=== PATIENT | male | born 1990 | race Two or more races ===

== ENCOUNTER 2021-12-29 14:05 | Emergency (ER) | payer MEDICAID, OTHER ==
[~2021-12-29] VITALS: Ht 190.5 cm; Wt 68.4 kg
[2021-12-29] MEDS ORDERED: CEPH-509 PO (15:00)
[2021-12-29] MEDS ORDERED: methylPREDNISolone SOD SUCC 125 MG/2 ML VL IM ONE (15:00)
[2021-12-29] MEDS ORDERED: PRED20TA2 PO (15:00)
[2021-12-29] MEDS ORDERED: DIPH25CA66 PO (15:00)
[2021-12-29] MEDS ORDERED: diphenhdrAMINE HCL 50 MG/1 ML VL IM ONE (15:00)
[2021-12-29 15:45] VITALS: BP 173/108
== END 2021-12-29 21:57 | disposition home or self-care (01) ==
LOC: ER 14:05
DX: S40.861A Insect bite (nonvenomous) of right upper arm, initial encounter (principal); I10 Essential (primary) hypertension; Z79.899 Other long term (current) drug therapy; W57.XXXA Bitten or stung by nonvenomous insect and other nonvenomous arthropods, initial encounter; Y93.89 Activity, other specified; Y92.89 Other specified places as the place of occurrence of the external cause; Y99.8 Other external cause status
CPT/HCPCS: 96372; 99284; J1200; J2930

== ENCOUNTER 2022-04-13 16:32 | Emergency (ER) | payer MEDICAID ==
[~2022-04-13] VITALS: Ht 190.5 cm; Wt 154.0 kg
[~2022-04-13 16:32] MED LIST: CEPH-509 PO; DIPH25CA66 PO; PRED20TA2 PO
[2022-04-13 16:33] VITALS: BP 182/99
[2022-04-13 17:14] LABS: Basophils # (auto) 0.1 10 ^3/uL (0-0.2); Basophils % (auto) 0.6 % (0.0-2.0); Eosinophils # (auto) 0.1 10 ^3/uL (0-0.8); Eosinophils % (auto) 1.3 % (0.0-7.0); Hematocrit 41.9 % (41.0-53.0); Hemoglobin 13.9 g/dL (13.5-17.5); Lymphocytes # (auto) 2.6 10 ^3/uL (0.4-5.4); Lymphocytes % (auto) 23.2 % (10.0-50.0); Mean Corpuscular Hemoglobin 27.3 pg (28.0-32.0); Mean Corpuscular Hgb Conc. 33.2 g/dL (32.0-36.0); Mean Corpuscular Volume 82.3 fL (80.0-100.0); Monocytes # (auto) 0.9 10 ^3/uL (0-1.3); Neutrophils # (auto) 7.4 10 ^3/uL (1.6-8.6); Neutrophils % (auto) 66.9 % (37.0-80.0); Nucleated Red Blood Cells % 0.2 %
[2022-04-13 17:23] LABS: Albumin 3.6 g/dL (3.4-5.0); BUN/Creatinine Ratio 17.6; Calcium 9.4 mg/dL (8.5-10.1); Potassium 4.3 mmol/L (3.5-5.1)
[2022-04-13 17:27] LABS: Bilirubin, Total 0.6 mg/dL (0.2-1.0)
[2022-04-13] MEDS ORDERED: ASPirin 325 MG TAB PO ONE (17:30)
[2022-04-13] MEDS ORDERED: NITROGLYCERIN 0.4 MG SL TAB SL ONE (17:30)
== END 2022-04-13 19:22 | disposition left against medical advice (07) ==
LOC: ER 16:32
DX: I24.9 Acute ischemic heart disease, unspecified (principal); I10 Essential (primary) hypertension; Z79.899 Other long term (current) drug therapy
CPT/HCPCS: 36415; 71045; 80053; 84484; 85025; 85379; 93005

== ENCOUNTER 2022-05-18 15:38 | Emergency (ER) | payer MEDICAID ==
[~2022-05-18] VITALS: Ht 190.5 cm; Wt 161.0 kg
[2022-05-18 16:15] LABS: Basophils # (auto) 0.1 10 ^3/uL (0-0.2); Eosinophils # (auto) 0.2 10 ^3/uL (0-0.8); Red Cell Distribution Width 14.3 % (11.8-14.3)
[2022-05-18 16:17] LABS: Basophils % (auto) 0.7 % (0.0-2.0); Eosinophils % (auto) 1.6 % (0.0-7.0); Hematocrit 41.3 % (41.0-53.0); Hemoglobin 13.3 g/dL (13.5-17.5); Lymphocytes # (auto) 3.1 10 ^3/uL (0.4-5.4); Lymphocytes % (auto) 27.7 % (10.0-50.0); Mean Corpuscular Hemoglobin 26.7 pg (28.0-32.0); Mean Corpuscular Hgb Conc. 32.3 g/dL (32.0-36.0); Mean Corpuscular Volume 82.7 fL (80.0-100.0); Monocytes # (auto) 1.1 10 ^3/uL (0-1.3); Monocytes % (auto) 9.6 % (0.0-12.0); Neutrophils # (auto) 6.7 10 ^3/uL (1.6-8.6); Neutrophils % (auto) 60.4 % (37.0-80.0); Nucleated Red Blood Cells % 0.1 %; White Blood Cell 11.2 10^3/uL (4.4-10.8)
[2022-05-18 16:38] LABS: Albumin 3.4 g/dL (3.4-5.0); BUN/Creatinine Ratio 14.8; Calcium 9.2 mg/dL (8.5-10.1); Potassium 3.7 mmol/L (3.5-5.1)
[2022-05-18 16:53] LABS: Bilirubin, Total 0.4 mg/dL (0.2-1.0); Total Protein 7.4 g/dL (6.4-8.2)
[2022-05-18] MEDS ORDERED: OMEP20TA PO (20:38)
[2022-05-18] MEDS ORDERED: AMLO-496 PO (20:38)
[2022-05-18 20:56] VITALS: BP 177/98
== END 2022-05-18 20:56 | disposition home or self-care (01) ==
LOC: ER 15:38
DX: I10 Essential (primary) hypertension (principal); K21.9 Gastro-esophageal reflux disease without esophagitis; R51.9 Headache, unspecified; R07.9 Chest pain, unspecified
CPT/HCPCS: 36415; 71045; 80053; 84484; 85025; 93005

== ENCOUNTER 2023-11-12 23:02 | Emergency (ER) | payer MEDICAID ==
[~2023-11-12] VITALS: Ht 190.5 cm; Wt 172.2 kg
[~2023-11-12 23:02] MED LIST changes: +AMLO1TAB23 PO; +OMEP20TA PO
[2023-11-12 23:06] VITALS: BP 189/115
[2023-11-12 23:22] LABS: Basophils # (auto) 0.1 10 ^3/uL (0-0.2); Eosinophils # (auto) 0.5 10 ^3/uL (0-0.8); Monocytes # (auto) 1.5 10 ^3/uL (0-1.3); Neutrophils % (auto) 75.8 % (37.0-80.0)
[2023-11-12 23:23] LABS: Basophils % (auto) 0.5 % (0.0-2.0); Eosinophils % (auto) 2.6 % (0.0-7.0); Hematocrit 39.7 % (41.0-53.0); Hemoglobin 13.2 g/dL (13.5-17.5); Lymphocytes # (auto) 2.4 10 ^3/uL (0.4-5.4); Lymphocytes % (auto) 12.9 % (10.0-50.0); Mean Corpuscular Hemoglobin 26.9 pg (28.0-32.0); Mean Corpuscular Hgb Conc. 33.4 g/dL (32.0-36.0); Mean Corpuscular Volume 80.7 fL (80.0-100.0); Monocytes % (auto) 8.2 % (0.0-12.0); Neutrophils # (auto) 14.1 10 ^3/uL (1.6-8.6); Red Blood Cells 4.92 10^6/uL (4.5-5.90); Red Cell Distribution Width 14.8 % (11.8-14.3); White Blood Cell 18.6 10^3/uL (4.4-10.8)
[2023-11-12 23:39] VITALS: RESP 24; O2SAT 93
[2023-11-12] MEDS: ALBUTEROL SULF 2.5 MG/0.5ML(0.5%) NEB SOLN ONE (23:39)
[2023-11-12] MEDS: ALBUTEROL SULF 2.5 MG/0.5ML(0.5%) NEB SOLN NEB ONE (23:39)
[2023-11-12 23:44] LABS: Alanine Aminotransferase 21 U/L (7-40); Albumin 4.5 g/dL (3.2-4.8); Alkaline Phosphatase 106 U/L (46-116); Anion Gap 7 (5-15); Aspartate Aminotransferase 18 U/L (13-40); BUN/Creatinine Ratio 10.7 (10.0-20.0); Blood Urea Nitrogen 12 mg/dL (9-23); Calcium 9.7 mg/dL (8.5-10.1); Carbon Dioxide 25 mmol/L (20-30); Chloride 104 mmol/L (98-107); Glucose 197 mg/dL (74-106); Magnesium 1.9 mg/dL (1.6-2.6); Potassium 3.6 mmol/L (3.5-5.1); Sodium 136 mmol/L (136-145)
[2023-11-12 23:45] LABS: Bilirubin, Total 0.5 mg/dL (0.2-1.0); Total Protein 7.9 g/dL (5.7-8.2)
[2023-11-12 23:46] LABS: INR 1.02 (0.9-1.15); Partial Thromboplastin Time 27.1 SEC (24.5-34.5); Prothrombin Time 10.8 sec (9.3-11.8)
[2023-11-13 00:01] VITALS: PULSE 125
== END 2023-11-13 02:59 | disposition home or self-care (01) ==
LOC: ER 23:02
DX: R07.9 Chest pain, unspecified (principal); K21.9 Gastro-esophageal reflux disease without esophagitis; I10 Essential (primary) hypertension
CPT/HCPCS: 36415; 71046; 80053; 83735; 83880; 84484; 85025; 85610; 85730; 93005; 94640

== ENCOUNTER 2023-11-25 18:39 | Emergency (ER) | payer MEDICAID ==
[~2023-11-25] VITALS: Ht 190.5 cm; Wt 172.7 kg
[2023-11-25] MEDS ORDERED: CLON0.1T PO (19:22)
[2023-11-25] MEDS ORDERED: AMLO1TAB23 PO (19:22)
[2023-11-25] MEDS ORDERED: LISI40TA16 PO (19:22)
[2023-11-25 19:41] VITALS: BP 181/108; PULSE 86; RESP 18; TEMP 98.5; O2SAT 95
== END 2023-11-25 19:44 | disposition home or self-care (01) ==
LOC: ER 18:39
DX: H92.01 Otalgia, right ear (principal); I10 Essential (primary) hypertension; K21.9 Gastro-esophageal reflux disease without esophagitis

== ENCOUNTER 2024-12-08 12:26 | Emergency (ER) | payer MEDICAID ==
[~2024-12-08] VITALS: Ht 190.5 cm; Wt 166.1 kg
[~2024-12-08 12:26] MED LIST changes: +CLON0.1T PO; +LISI40TA16 PO
[2024-12-08] MEDS: diazePAM 2 MG TAB PO ONE (13:00)
--- NOTE | 2024-12-08 13:14 | ED.PDOC ---
Back pain HPI HPI Comments This is a 34 year old male presenting to the ED with chief complaint of back pain. Patient reports that he started to suddenly experience lower left back pain since yesterday. Patient relays that his pain radiates to his abdomen, his pain is worsened when rotating, but better when sitting. Patient denies any N/V/D, dysuria, hematuria, chest pain, SOB, fall, or injury. Chief Complaint: Back Pain Time Seen by MD: 13:10 Primary Care Provider: none Reviewed Notes: Nurses Notes, Medications, Allergies Allergies: Coded Allergies: No Known Drug Allergy (Verified Allergy, Unknown, 12/29/21) Home Meds Active Scripts Clonidine Hydrochloride (Clonidine Hcl) 0.1 Mg Tab, 1 TAB PO QPM, #30 TAB 0 Refi lls Prov:GRACIELA MCCURDYO [facility] 11/25/23 Lisinopril (Lisinopril) 40 Mg Tab, 1 TAB PO DAILY, #30 TAB 0 Refills Prov:KAZGRACIELA [facility] 11/25/23 Amlodipine Besylate (Amlodipine Besylate) 10 Mg Tab, 1 TAB PO DAILY, #30 TAB 5 Refills Prov:MCCURDYGRACIELA [facility] 11/25/23 Omeprazole (Gnp Omeprazole) 20 Mg Tab, 1 TAB PO DAILY, #30 TAB 3 Refills Prov:SUKHDEV PETE DO 05/18/22 Diphenhydramine Hcl (Benadryl Allergy) 25 Mg Cap, 2 CAP PO Q4HPRN, #30 CAP 0 Refills Prov:KATELYN WIGGINS 12/29/21 Cephalexin (KEFLEX 500) 500 Mg Cap, 1 CAP PO BID for 7 Days, #14 CAP 0 Refills Prov:KATELYN WIGGINS 12/29/21 Prednisone (Prednisone) 20 Mg Tab, 20 MG PO BID for 5 Days, #10 MG 0 Refills Prov:KATELYN WIGGINS 12/29/21 Information Source: Patient Mode of Arrival: Ambulatory Timing: Days Duration: Since onset Location of Back pain: (L) Lower back Severity: Moderate Prehospital treatment: None Quality: Aching Onset: Spontaneous, Twisting Past Medical History PAST MEDICAL HISTORY: GERD, HTN Surgical History: Denies all surgeries Family History Family History: Unknown Social History Smoker: Non-Smoker Alcohol: Denies ETOH Use Drugs: Denies Drug Use Lives In: Home Constitutional: denies: chills, diaphoresis, fatigue, fever, malaise, sweats, weakness, others EENTM: denies: blurred vision, double vision, ear bleeding, ear discharge, ear drainage, ear pain, ear ringing, eye pain, eye redness, hearing loss, mouth pain, mouth swelling, nasal discharge, nose bleeding, nose congestion, nose pain , photophobia, tearing, throat pain, throat swelling, voice changes, others Respiratory: denies: cough, hemoptysis, orthopnea, SOB at rest, shortness of breath, SOB with excertion, stridor, wheezing, others Cardiovascular: denies: chest pain, dizzy spells, diaphoresis, Dyspnea on exertion, edema, irregular heart beat, left arm pain, lightheadedness, palpitations, PND, syncope, others Gastrointestinal: denies: abdomen distended, abdominal pain, blood streaked bowels, constipated, diarrhea, dysphagia, difficulty swallowing, hematemesis, melena, nausea, poor appetite, poor fluid intake, rectal bleeding, rectal pain, vomiting, others Genitourinary: denies: burning, dysuria, flank pain, frequency, hematuria, incontinence, penile discharge, penile sore, pain, testicle pain, testicle swelling, urgency, others Neurological: denies: dizziness, fainting, headache, left sided numbness, left sided weakness, numbness, paresthesia, pre-existing deficit, right sided numbness, right sided weakness, seizure, speech problems, tingling, tremors, weakness, others Musculoskeletal: reports: back pain; denies: gout, joint pain, joint swelling, muscle pain, muscle stiffness, neck pain, others Integumetry: denies: bruises, change in color, change in hair/nails, dryness, laceration, lesions, lumps, rash, wounds, others Allergic/Immunocompromised: denies: Difficulty Healing, Frequent Infections, Hives, Itching, others Hematologic/Lymphatic: denies: anemia, blood clots, easy bleeding, easy bruising, swollen glands, others Endocrine: denies: excessive hunger, excessive sweating, excessive thirst, excessive urination, flushing, intolerance to cold, intolerance to heat, unexplained weight gain, unexplained weight loss, others Psychiatric: denies: anxiety, bipolar disorder, depression, hopeless, panic disorder, schizophrenia, sleepless, suicidal, others All Other Systems: Reviewed and Negative Physical Exam General Appearance: No Apparent Distress, Normal HEENT: Normal ENT Inspection, Pharynx Normal, TMs Normal Neck: Full Range of Motion, Non-Tender, Normal, Normal Inspection Respiratory: Chest Non-Tender, Lungs Clear, No Accessory Muscle Use, No Respiratory Distress, Normal Breath Sounds Cardiovascular: No Edema, No JVD, No Murmur, No Gallop, Normal Peripheral Pulses, Regular Rate/Rhythm Breast Exam: Deferred Gastrointestinal: No Organomegaly, Non Tender, No Pulsatile Mass, Normal Bowel Sounds, Soft Genitalia: Deferred Pelvic: Deferred Rectal: Deferred Extremities: No calf tenderness, Normal capillary refill, Normal inspection, Normal range of motion, Non-tender, No pedal edema Musculoskeletal : Apperance: Normal Neurologic: Alert, 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 Was a procedure done?: No Back Pain Differential Dx Differential Diagnosis: Fracture, Musculoskeletal Pain, Pyelonephritis, Urinary Tract Infection, Urolithiasis X-Ray, Labs, Meds, VS Vital Signs Date Time Temp Pulse Resp B/P (MAP) Pulse Ox O2 Delivery O2 Flow Rate FiO2 12/08/24 13:36 98.3 86 19 190/110 (136) 96 98.3 12/08/24 12:58 98.3 87 20 198/126 (150) 97 98.3 Lab Test 12/08/24 13:24 12/08/24 12:57 Range/Units White Blood Count 12.9 H 4.4-10.8 10^3/uL Red Blood Count 5.02 4.5-5.90 10^6/uL Hemoglobin 13.0 L 13.5-17.5 g/dL Hematocrit 39.2 L 41.0-53.0 % Mean Corpuscular Volume 78.0 L 80.0-100.0 fL Mean Corpuscular Hemoglobin 25.9 L 28.0-32.0 pg Mean Corpuscular Hemoglobin Concent 33.2 32.0-36.0 g/dL Red Cell Distribution Width 15.2 H 11.8-14.3 % Platelet Count 412 140-450 10^3/uL Mean Platelet Volume 7.4 6.9-10.8 fL Neutrophils (%) (Auto) 74.5 37.0-80.0 % Lymphocytes (%) (Auto) 16.6 10.0-50.0 % Monocytes (%) (Auto) 7.6 0.0-12.0 % Eosinophils (%) (Auto) 0.7 0.0-7.0 % Basophils (%) (Auto) 0.6 0.0-2.0 % Neutrophils # (Auto) 9.6 H 1.6-8.6 10 ^3/uL Lymphocytes # (Auto) 2.1 0.4-5.4 10 ^3/uL Monocytes # (Auto) 1.0 0-1.3 10 ^3/uL Eosinophils # (Auto) 0.1 0-0.8 10 ^3/uL Basophils # (Auto) 0.1 0-0.2 10 ^3/uL Nucleated Red Blood Cells 0.0 % Sodium Level 141 136-145 mmol/L Potassium Level 4.0 3.5-5.1 mmol/L Chloride Level 103 98-107 mmol/L Carbon Dioxide Level 29 20-31 mmol/L Anion Gap 9 5-15 Blood Urea Nitrogen 16 9-23 mg/dL Creatinine 1.28 0.700-1.30 mg/dL Glomerular Filtration Rate Calc 74 >90 mL/min BUN/Creatinine Ratio 12.5 10.0-20.0 Serum Glucose 158 H 74-106 mg/dL Calcium Level 10.0 8.7-10.4 mg/dL Urine Color Light-yellow Yellow Urine Clarity Clear Clear Urine pH 6.0 5.0-9.0 Urine Specific [place] 1.018 1.001-1.035 Urine Protein Trace H Negative Urine Ketones Negative Negative Urine Blood Negative Negative /uL Urine Nitrite Negative Negative Urine Bilirubin Negative Negative Urine Urobilinogen Normal Negative mg/dL Urine Leukocyte Esterase Negative Negative /uL Urine RBC <1 0 - 3 /hpf Urine Microscopic WBC 1 0-3 /HPF Urine Squamous Epithelial Cells Few <5 /hpf Urine Bacteria None seen None Seen /hpf Urine Mucus Few None Seen Urine Glucose Normal Normal mg/dL Current Medications Medications (Trade) Dose Ordered Sig/Kevin Route Start Time Stop Time Status Last Admin Ketorolac Tromethamine (Toradol Injection) 30 mg ONCE ONCE IM 12/08/24 13:00 12/08/24 13:01 DC 12/08/24 13:31 Diazepam (Valium Tablet) 2 mg ONCE ONCE PO 12/08/24 13:00 12/08/24 13:01 DC 12/08/24 13:00 Acetaminophen/ Hydrocodone Bitart ([place] 5/325MG Tab) 1 tab ONCE ONCE PO 12/08/24 13:00 12/08/24 13:01 DC 12/08/24 13:30 L-Spine XR: FINDINGS: There is mild retrolisthesis of L3 on L4. Vertebral body heights are maintained. Posterior elements are intact. No acute fracture. [id number] disc space narrowing at L4-L5 and L5-S1 with associated endplate sclerosis and mild endplate spurring. Mild facet hypertrophy at L4-L5 and L5-S1. Paraspinal soft tissues are grossly unremarkable. IMPRESSION: 1. No evidence of acute fracture. 2. Mild retrolisthesis of L3 on L4. 3. Degenerative disc disease and facet disease as described above. Time of 1ST Reevaluation: 13:39 Reevaluation 1ST: Unchanged Patient Education/Counseling: Diagnosis, Treatment, Prognosis, Need For Follow Up Family Education/Counseling: Diagnosis, Treatment, Prognosis, Need For Follow Up, No Family Present Comments pt has degenerative spien disease, is morbidly obese and uncontrolled htn. i counselled pt about the importance of weight loss. i will medicate him with clonidine to lower his BP but not more [id number] before discharge. he will follow up with his PCP for BP management. he will be prescribed flexeril and norco for the acute pain, but avoid NASID for now, since it may worsen renal functions and htn Additional Information Reviewed patient's previous visit(s): 11/25/23 for right ear pain The following tests were ordered, and results were reviewed by me: Lumbar Spine XR, CBC, BMP, UA Additional information was gathered from interviewing the following independent historian: None I reviewed and agreed with the following test results read by other provider: Lumbar Spine XR I discussed treatments and results with medical personnel and: Patient Comprehensive systems review obtained and negative except for what is stated in the HPI. SEPSIS Sepsis Screen Date sepsis recognized/suspect: Dec 08, 2024 Time Sepsis recognized/suspect: 1253 Recent Procedure: No On Antibiotic Therapy: No Respiratory Rate >20: No Heart Rate >90: No Temp<36 C (96.8 F) or >38.3 C: No SBP <90 or MAP <65 mmHG: No New Acute Mental Status Change: No Is the patient on CPAP, BIPAP,: No Physician Orders Lumbar Spine 3 View (12/08/24 12:50) Clonidine Hcl Tablet (Catapres Tablet) (12/08/24 15:15) Vital Signs Date Time Temp Pulse Resp B/P (MAP) Pulse Ox O2 Delivery O2 Flow Rate FiO2 12/08/24 13:36 98.3 86 19 190/110 (136) 96 98.3 12/08/24 12:58 98.3 87 20 198/126 (150) 97 98.3 Laboratory Tests Test 12/08/24 13:24 White Blood Count 12.9 10^3/uL (4.4-10.8) H Medications Medications Dose Ordered Sig/Kevin Route Start Time Stop Time Status Last Admin Dose Admin Acetaminophen/ Hydrocodone Bitart 1 tab ONCE ONCE PO 12/08/24 13:00 12/08/24 13:01 DC 12/08/24 13:30 Diazepam 2 mg ONCE ONCE PO 12/08/24 13:00 12/08/24 13:01 DC 12/08/24 13:00 Ketorolac Tromethamine 30 mg ONCE ONCE IM 12/08/24 13:00 12/08/24 13:01 DC 12/08/24 13:31 Departure 1 Departure Time of Disposition: 15:09 Impression: Primary Impression: Musculoskeletal pain Additional Impressions: DDD (degenerative disc disease) Qualified Codes: M51.360 - Other intervertebral disc degeneration, lumbar region with discogenic back pain only Hypertension Qualified Codes: I10 - Essential (primary) hypertension Morbid obesity Disposition: 01 HOME / SELF CARE / HOMELESS Condition: Good e-Prescriptions Cyclobenzaprine Hcl (Cyclobenzaprine Hcl) 10 Mg Tab 10 MG PO Q8HP PRN for 2 Days, #6 TAB Prov: MANNIE CRUZ MD 12/08/24 Hydrocodone-Acetaminophen (Hydrocodone Bitartrate/AC 5-325 mg) 1 Tab Tab 1 TAB PO Q8HP PRN for 2 Days, #6 TAB Prov: MANNIE CRUZ MD 12/08/24 Discharged With: Self, Relative Critical Care Note Critical Care Time?: No Stability Stability form required: No Heart Score Heart Score: Heart Score Response (Comments) Value History N/A 0 EKG N/A 0 Age N/A 0 Risk Factors N/A 0 Troponin N/A 0 Total 0 I personally scribed for MANNIE CRUZ MD ([email or web address]) on 12/08/24 at 13:14. Electronically submitted by Shane Bennett ([email or web address]). I personally scribed for MANNIE CRZU MD ([email or web address]) on 12/08/24 at 14:47. Electronically submitted by Shane Bennett ([email or web address]). MANNIE CRUZ MD Dec 08, 2024 13:14
[2024-12-08] MEDS: HYDROcodone-ACET 5/325MG TAB PO ONE (13:30)
[2024-12-08] MEDS: KETOROLAC TROMETH 30 MG/ML 1ML VIAL IM ONE (13:31)
[2024-12-08 13:38] LABS: Hemoglobin 13.0 g/dL (13.5-17.5); Nucleated Red Blood Cells % 0.0 %
[2024-12-08 13:40] LABS: Hematocrit 39.2 % (41.0-53.0); Mean Corpuscular Hemoglobin 25.9 pg (28.0-32.0); Mean Corpuscular Volume 78.0 fL (80.0-100.0)
[2024-12-08 13:46] LABS: Chloride 103 mmol/L (98-107); Potassium 4.0 mmol/L (3.5-5.1); Sodium 141 mmol/L (136-145)
[2024-12-08 13:47] LABS: Anion Gap 9 (5-15); Calcium 10.0 mg/dL (8.7-10.4); Carbon Dioxide 29 mmol/L (20-31)
[2024-12-08 13:52] LABS: BUN/Creatinine Ratio 12.5 (10.0-20.0); Blood Urea Nitrogen 16 mg/dL (9-23)
--- NOTE | 2024-12-08 13:53 | DVH ---
CLINICAL INFORMATION: Back pain. TECHNIQUE: 3 views of the lumbar spine were obtained. COMPARISON: None FINDINGS: There is mild retrolisthesis of L3 on L4. Vertebral body heights are maintained. Posterior elements are intact. No acute fracture. [id number] disc space narrowing at L4-L5 and L5-S1 with associated endplate sclerosis and mild endplate spurring. Mild facet hypertrophy at L4-L5 and L5-S1. Paraspinal soft tissues are grossly unremarkable. IMPRESSION: 1. No evidence of acute fracture. 2. Mild retrolisthesis of L3 on L4. 3. Degenerative disc disease and facet disease as described above.
[2024-12-08 13:59] LABS: Glucose 158 mg/dL (74-106)
[2024-12-08 14:47] LABS: Urine Protein, UAD TRACE (Negative)
[2024-12-08] MEDS ORDERED: CYCL-839 PO (15:11)
[2024-12-08] MEDS ORDERED: HYDR-4902 PO (15:11)
[2024-12-08 16:23] VITALS: BP 187/96; PULSE 80; RESP 20; TEMP 98; O2SAT 96
== END 2024-12-08 16:35 | disposition home or self-care (01) ==
LOC: ER 12:26
DX: M51.360 Other intervertebral disc degeneration, lumbar region with discogenic back pain only (principal); I10 Essential (primary) hypertension; E66.01 Morbid (severe) obesity due to excess calories; M79.18 Myalgia, other site; Z79.899 Other long term (current) drug therapy
CPT/HCPCS: 36415; 72100; 80048; 81001; 85025; 96372; 99284; J1885